=== PATIENT | male | born 1945 | race Caucasian/White ===

== ENCOUNTER → 2017-03-20 | Day surgery (SDC) | payer OTHER ==
[2017-03-15 08:46] VITALS: Ht 180.3 cm; Wt 81.8 kg
[~2017-03-20] VITALS: Ht 180.3 cm; Wt 81.8 kg
[~2017-03-20] MED LIST: ASPI1TAB48 PO; ATOR-24 PO; FOLI1TAB7 PO; JUICE PLUS PO; LIDOCAINE HCL 2% 2 ML VIAL (20MG/ML) ONE; LISI10TA PO; METH2.5T PO; PRLSR20 PO; PROPOFOL IV EMULSION 10 MG/ML 20 ML VIAL IV ONE; SODIUM CHLORIDE 0.9% 500ML 500 ML IV ONE; VNTHFA/IN INH
--- NOTE | 2017-03-20 13:57 | Endo History and Physical ---
History & Physical Date of Service: Mar 20, 2017. Chief Complaint: ANEMIA Referring Physician: DR. GUZMAN History of Present Illness EGD and colonoscopy for anemia Past Surgical History Hx Cardiac Surgery: Yes (AORTIC VALVE REPLACEMENT AND REPAIR; HEART CATH, NO STENTS) Hx Internal Defibrillator: No Hx Pacemaker: No Hx Abdominal Surgery: Yes ([facility]) Hx of Implantable Prosthesis: No Hx Post-Op Nausea and Vomiting: No Hx Cancer Surgery: No Hx Thoracic Surgery: No Hx Orthopedic: Yes (RT ARM BICEP REPAIR) Hx Urinary Tract Surgery: No Family History None Social History Smoking Status: Former Smoker Hx Substance Use: No Hx Alcohol Use: Yes (3 DRINKS/WEEK) Allergies Coded Allergies: Morphine (Verified Adverse Reaction, Unknown, GI SYMPTOMS, 03/15/17) Current Medications Reported Home Medications Medications Dose Route/Sig Max Daily Dose Days Date Category Dose Instructions [Juice Plus] 1 Pkt PO QAM 03/15/17 Reported Prilosec (Omeprazole) 20 Mg Capcr 20 Mg PO Q2D 03/15/17 Reported Ventolin Hfa (Albuterol) 200 Puffs/82708 Mcg Aers 2-4 Puffs INH Q6H PRN 03/15/17 Reported Lipitor (Atorvastatin Calcium) 40 Mg Tab 40 Mg PO QAM 03/15/17 Reported Methotrexate 2.5 Mg Tab 8 Tabs PO WK 08/30/13 Reported TAKE ON FRIDAYS TAKES 4 TABS AM AND 4 TABS PM Prinivil (Lisinopril) 10 Mg Tab 0.5 Tab PO QAM 08/30/13 Reported Folvite (Folic Acid) 1 Mg Tab 2 Tabs PO QAM 08/30/13 Reported Aspirin Low Dose (Aspirin) 81 Mg Tab 81 Mg PO QAM 08/30/13 Reported Vital Signs Weight (Kilograms): 81.82 Height (Feet): 5 Height (Inches): 11 Date Time Temp Pulse Resp B/P (MAP) Pulse Ox O2 Delivery O2 Flow Rate FiO2 03/20/17 13:53 36.4 85 16 120/74 (89) 100 Room Air Physical Exam General Appearance: WD/WN, no apparent distress Respiratory/Chest: Auscultation: breath sounds normal, no wheezing Cardiovascular: Heart Auscultation: RRR, no murmurs Assessment and Plan Cleared for procedure
--- NOTE | 2017-03-20 14:24 | GI REPORT ---
Procedure Date: 03/20/2017 1:44 PM Procedure: Upper GI endoscopy Indications: Iron deficiency anemia Medicines: Propofol per Anesthesia Complications: No immediate complications. Estimated blood loss: None. Estimated Blood Loss: Estimated blood loss: none. Procedure: Pre-Anesthesia Assessment: - Prior to the procedure, a History and Physical was performed, and patient medications, allergies and sensitivities were reviewed. The patient's tolerance of previous anesthesia was reviewed. - ASA Grade Assessment: III - A patient with severe systemic disease. After obtaining informed consent, the endoscope was passed under direct vision. Throughout the procedure, the patient's blood pressure, pulse, and oxygen saturations were monitored continuously. The scope was introduced through the mouth, and advanced to the third part of the duodenum. Small bowel enteroscopy was deemed necessary. The upper GI endoscopy was accomplished with ease. The patient tolerated the procedure well. Findings: The upper third of the esophagus, middle third of the esophagus and lower third of the esophagus were normal. The Z-line was regular and was found 40 cm from the incisors. A small sliding hiatus hernia was present. The entire examined stomach was normal. Biopsies were taken with a cold forceps for Helicobacter pylori testing. The examined duodenum was normal. Biopsies for histology were taken with a cold forceps for evaluation of celiac disease. Verification of patient identification for the specimens was done by the physician and nurse using the patient's name, date and medical record number. Impression: - Normal upper third of esophagus, middle third of esophagus and lower third of esophagus. - Z-line regular, 40 cm from the incisors. - Small sliding hiatus hernia. - Normal stomach. Biopsied. - Normal examined duodenum. Biopsied. Recommendation: - Perform a colonoscopy today. Donny Shelby M.D. Donny Shelby MD 03/20/2017 2:24:16 PM This report has been signed electronically. Note Initiated On: 03/20/2017 1:44 PM I attest to the content of the Intraoperative Record and orders documented therein, exceptions below
--- NOTE | 2017-03-20 14:59 | GI REPORT ---
Procedure Date: 03/20/2017 1:45 PM Procedure: Colonoscopy Indications: Iron deficiency anemia Medicines: Propofol per Anesthesia Complications: No immediate complications. Estimated blood loss: None. Estimated Blood Loss: Estimated blood loss: none. Procedure: Pre-Anesthesia Assessment: - Prior to the procedure, a History and Physical was performed, and patient medications, allergies and sensitivities were reviewed. The patient's tolerance of previous anesthesia was reviewed. - ASA Grade Assessment: III - A patient with severe systemic disease. After I obtained informed consent, the scope was passed under direct vision. Throughout the procedure, the patient's blood pressure, pulse, and oxygen saturations were monitored continuously. The Scope was introduced through the anus and advanced to the terminal ileum, with identification of the appendiceal orifice and IC valve. The colonoscopy was performed with difficulty due to a tortuous colon. The patient tolerated the procedure well. The quality of the bowel preparation was excellent. The bowel preparation used was split dose MIralax. Findings: Multiple large-mouthed diverticula were found in the left colon. The colon (entire examined portion) was tortuous. Impression: - Diverticulosis in the left colon. - Tortuous colon. - No specimens collected. - The colon was otherwise normal to the terminal ileum with retroflexed views of the ascending colon and terminal ileum. Recommendation: - Discharge patient to home (with escort). Donny Shelby M.D. Donny Shelby MD 03/20/2017 2:58:52 PM This report has been signed electronically. Note Initiated On: 03/20/2017 1:45 PM I attest to the content of the Intraoperative Record and orders documented therein, exceptions below
[2017-03-20 15:30] VITALS: BP 101/70; PULSE 92; O2SAT 99
--- NOTE | 2017-03-20 15:33 | Anesthesiology Progress Note ---
Anesthesia Post Op Note Date & Time Mar 20, 2017 at 15:33 Vital Signs Pain Intensity: 0 Vital Signs Past 12 Hours Date Time Temp Pulse Resp B/P (MAP) Pulse Ox O2 Delivery O2 Flow Rate FiO2 03/20/17 15:16 92 20 99/64 (76) 9 Room Air 03/20/17 15:01 94 16 99/64 (76) 98 Room Air 03/20/17 13:53 36.4 85 16 120/74 (89) 100 Room Air Notes Mental Status: alert / awake / arousable, participated in evaluation Pt Amnestic to Procedure: Yes Nausea / Vomiting: adequately controlled Pain: adequately controlled Airway Patency, RR, SpO2: stable & adequate BP & HR: stable & adequate Hydration State: stable & adequate Anesthetic Complications: no major complications apparent
--- NOTE | 2017-03-20 15:56 | Discharge Instructions ---
Endoscopy Patient Instructions Date / Procedure(s) Performed Mar 20, 2017. Colonoscopy, EGD Allergy Information Coded Allergies: Morphine (Verified Adverse Reaction, Unknown, GI SYMPTOMS, 03/15/17) Discharge Date / Findings Mar 20, 2017. Diveticulosis, Duodenal biopsy obtained Medication Instructions Stopped Medication(s): ASPIRIN 03/19/17 Restart Stopped Medication(s): Resume all medications today. Provider Instructions Activity Restrictions - No exercising or heavy lifting for 24 hours. - Do not drink alcohol the day of the procedure. - Do not drive a car or operate machinery until the day after the procedure. - Do not make any important decisions or sign important papers in 24 hours after the procedure. Following Day: - Return to full activity which may include returning to work/school. Diet Start your diet with liquids and light foods (jello, soup, juice, toast). Then eat your usual diet if not nauseated. Treatment For Common After Affects For mild abdominal pain, bloating, or excessive gas: - Rest - Eat lightly - Lie on right side Follow-Up Information Follow-up with DR. GUZMAN as scheduled Anesthesia Information What You Should Know You have had a procedure that required some medicine to reduce anxiety and discomfort. This treatment is called moderate sedation. After receiving the treatment, you may be sleepy, but you will be able to breathe on your own. The effects of the treatment may last for several hours. Follow these instructions along with Activity/Diet recommendations noted above: * Do NOT do anything where dizziness or clumsiness would be dangerous. * Rest quietly at home today, then you can be up and about tomorrow. * Have a responsible person stay with you the rest of today. * You may have had an I.V. today. If so, you may take the dressing off later today. Recommendations Call your doctor if: * Trouble breathing * Continuous vomiting for more than 24 hours * Temperature above 101 degrees * Severe abdominal pain or bloating * Pain not relieved by pain medicine ordered * There is increased drainage or redness from any incision * A large amount of rectal bleeding greater than 2-3 tablespoons. (If you had a polyp/s removed or have hemorrhoids, a small amount of blood - from the rectum is to be expected.) * You have any unanswered questions or concerns. IN THE EVENT OF A SERIOUS EMERGENCY, GO TO THE NEAREST EMERGENCY ROOM Your discharge instructions were prepared by provider Donny Shelby. Patient Instructions Signature Page Dallas Beebe Patient (or Guardian) Signature/Date: I have read and understand the instructions given to me by my caregivers. Caregiver/RN/Doctor Signature/Date: The above-named patient and/or guardian has received patient instructions on this date. + Original Patient Signature Page (only) stays with chart. Please make copy for patient.
== END | disposition home or self-care (01) ==
LOC: C.GI 13:01
PROVIDERS: ATTEND Internal Medicine Gastroenterology
DX: D50.9 Iron deficiency anemia, unspecified (principal); K57.30 Diverticulosis of large intestine without perforation or abscess without bleeding; K44.9 Diaphragmatic hernia without obstruction or gangrene; Z87.891 Personal history of nicotine dependence; Z95.2 Presence of prosthetic heart valve; Z79.82 Long term (current) use of aspirin; Z79.899 Other long term (current) drug therapy